=== PATIENT | female | born 1985 | race Asian ===

== ENCOUNTER 2017-05-24 12:52 | Inpatient (IN) | payer OTHER ==
[~2017-05-24] VITALS: Ht 160 cm; Wt 67.1 kg
[2017-05-24] MEDS ORDERED: OXYTOCIN 20 UNITS in LACTATED RINGERS 1,000 ML IV SCH (13:19)
[2017-05-24] MEDS ORDERED: AMPICILLIN 2,000 MG in NACL 0.9% MINI-BAG PLUS 100 ML IV SCH (13:20)
[2017-05-24] MEDS ORDERED: METHYLERGONOVINE 0.2 MG/ML AMP IM PRN (13:20)
[2017-05-24] MEDS ORDERED: LACTATED RINGERS 500 ML IV SCH (13:20)
[2017-05-24] MEDS ORDERED: NALBUPHINE HYDROCHLORIDE 10 MG/ML VIAL IVP PRN (13:20)
[2017-05-24] MEDS ORDERED: CARBOPROST 250 MCG/ML AMP IM PRN (13:20)
[2017-05-24] MEDS ORDERED: PROMETHAZINE 25 MG/ML VIAL IVP PRN (13:20)
[2017-05-24] MEDS ORDERED: OXYTOCIN 10 UNITS/ML VIAL IM SCH (13:20)
[2017-05-24 14:25] LABS: BASOPHILS # (AUTO) 0.1 K/uL (0.00-0.22); BASOPHILS % (AUTO) 0.7 % (0.0-2.0); EOSINOPHILS # (AUTO) 0.2 K/uL (0-0.4); EOSINOPHILS % (AUTO) 2.3 % (0.0-4.0); HEMOGLOBIN 12.3 g/dL (12.0-16.0); LYMPHOCYTES # (AUTO) 1.4 K/uL (2.5-16.5); LYMPHOCYTES % (AUTO) 16.5 % (20.5-51.1); MEAN CORPUSCULAR HEMOGLOBIN 31 pg (27-31); MEAN CORPUSCULAR HGB CONC 34 g/dL (33-37); MEAN CORPUSCULAR VOLUME 91 fL (80-94); MONOCYTES # (AUTO) 0.6 K/uL (0.8-1.0); MONOCYTES % (AUTO) 7.8 % (1.7-9.3); NEUTROPHILS % (AUTO) 72.7 % (42.2-75.2); PLATELET COUNT (AUTO) 334 K/uL (140-450); RED BLOOD CELL COUNT(AUTO) 3.96 MIL/uL (4.20-5.40); RED CELL DISTRIBUTION WIDTH 12.4 % (11.6-13.7); WHITE BLOOD COUNT (AUTO) 8.3 K/uL (4.8-10.8)
[2017-05-24 14:26] LABS: APPEARANCE,URINE CLEAR (CLEAR); BILIRUBIN,URINE NEGATIVE (NEGATIVE); BLOOD, URINE NEGATIVE (NEGATIVE); LEUKOCYTE ESTERASE ,URINE NEGATIVE (NEGATIVE); NITRITE, URINE NEGATIVE (NEGATIVE); UGLUCOSE NEGATIVE (NEGATIVE)
[2017-05-24 14:33] LABS: COLOR,URINE STRAW (YELLOW)
[2017-05-24 15:00] LABS: ALBUMIN 2.5 g/dL (3.4-5.0); ANION GAP 13.7 (8-16); CREATININE 0.8 mg/dL (0.6-1.3); POTASSIUM 3.7 mmol/L (3.5-5.1); TOTAL BILIRUBIN 0.2 mg/dL (0.0-1.0)
[2017-05-24 16:12] VITALS: BP 128/80
[2017-05-24] MEDS ORDERED: AMPICILLIN 2,000 MG VIAL ONE (16:16)
[2017-05-24] MEDS ORDERED: AMPICILLIN 1,000 MG VIAL ONE (20:43)
[2017-05-24] MEDS: AMPICILLIN 1,000 MG in NACL 0.9% MINI-BAG PLUS 50 ML IV SCH (20:56)
[2017-05-24] MEDS: LACTATED RINGERS 1,000 ML IV SCH (22:51)
[2017-05-24] MEDS ORDERED: BUPIVACAINE 0.125%/NS PREMIX 250 ML ONE (23:54)
[2017-05-25] MEDS ORDERED: BUPIVACAINE 0.125%/NS PREMIX 250 ML EPI SCH (00:20)
[2017-05-25] MEDS ORDERED: AMPICILLIN 1,000 MG VIAL ONE ×2 (00:21→04:34)
[2017-05-25] MEDS: AMPICILLIN 1,000 MG in NACL 0.9% MINI-BAG PLUS 50 ML IV SCH ×2 (00:35→04:43)
[2017-05-25] MEDS: LACTATED RINGERS 1,000 ML IV SCH (02:13)
[2017-05-25] MEDS ORDERED: SODIUM PHOSPHATE 118 ML ENEM RC PRN (08:20)
[2017-05-25] MEDS ORDERED: METHYLERGONOVINE 0.2 MG/ML AMP IM PRN (08:20)
[2017-05-25] MEDS ORDERED: OXYTOCIN 10 UNITS/ML VIAL IM PRN (08:20)
[2017-05-25] MEDS ORDERED: METHYLERGONOVINE 0.2 MG TAB PO PRN (08:20)
[2017-05-25] MEDS ORDERED: HYDROcodone/APAP 5/325 MG 1 TAB TAB PO PRN (08:20)
[2017-05-25] MEDS ORDERED: oxyCODONE/APAP 5/325 MG 1 TAB TAB PO PRN (08:20)
[2017-05-25] MEDS ORDERED: BENZOCAINE/MENTHOL 20%-0.5% 60 GM CAN TP PRN (08:20)
[2017-05-25] MEDS ORDERED: TEMAZEPAM 15 MG CAP PO PRN (08:20)
[2017-05-25] MEDS ORDERED: MEASLES, MUMPS, AND RUBELLA 1 VIAL SQVAC PRN (08:20)
[2017-05-25] MEDS ORDERED: OXYTOCIN 10 UNITS/ML VIAL ONE (08:28)
--- NOTE | 2017-05-25 08:55 | NUR ---
PATIENT HAS BEEN SCREENED AND CATEGORIZED LOW NUTRITION RISK. PATIENT WILL BE SEEN WITHIN 7 DAYS OF ADMISSION. 05/30/[address]
[2017-05-25] MEDS ORDERED: DOCUSATE SOD/SENNA 50/8.6 MG 1 TAB PO SCH (21:00)
[2017-05-26 05:58] LABS: HEMATOCRIT 32.3 % (36-48); HEMOGLOBIN 10.8 g/dL (12.0-16.0)
[2017-05-26] MEDS ORDERED: DOCUSATE SOD/SENNA 50/8.6 MG 1 TAB ONE (20:25)
[2017-05-26] MEDS ORDERED: DOCUSATE SOD/SENNA 50/8.6 MG 1 TAB PO SCH (21:00)
== END 2017-05-27 11:25 | disposition home or self-care (01) | DRG 560 ==
LOC: MLD 12:52 → OBSVTOIN 12:52 → MFCC 05-25 13:29
PROVIDERS: ADMIT Obstetrics & Gynecology; ATTEND Obstetrics & Gynecology
PROC: 10E0XZZ Delivery of Products of Conception, External Approach (ICD-10-PCS; principal; 2017-05-25)
PROC: 0HQ9XZZ Repair Perineum Skin, External Approach (ICD-10-PCS; 2017-05-25)
PROC: 00HU33Z Insertion of Infusion Device into Spinal Canal, Percutaneous Approach (ICD-10-PCS; 2017-05-25)
PROC: 3E0R3BZ Introduction of Anesthetic Agent into Spinal Canal, Percutaneous Approach (ICD-10-PCS; 2017-05-25)
DX: O70.0 First degree perineal laceration during delivery (principal); O89.4 Spinal and epidural anesthesia-induced headache during the puerperium; Z37.0 Single live birth; Z3A.37 37 weeks gestation of pregnancy; Z28.21 Immunization not carried out because of patient refusal; Z83.3 Family history of diabetes mellitus; Z87.891 Personal history of nicotine dependence
CPT/HCPCS: 36415; 51702; 59409; 80053; 81003; 85018; 85025; 86592; 86886; 86900; 86901; J0290; J2590; J3490; J7120